=== PATIENT | male | born 1945 | race Caucasian/White ===

== ENCOUNTER 2018-09-14 07:54 | Inpatient (IN) ==
[2018-09-06 15:32] LABS: Appearance,Urine CLEAR; Bilirubin,Urine NEG (NEG); Color,Urine COLORLESS; Glucose,Urine (UA) NEGATIVE (NEG); Leukocyte Esterase,Urine NEG /uL (NEG); Protein,Urine NEG (NEG); Specific Gravity,Urine 1.003 (1.000-1.035); Urine Blood NEG mg/dL (<0.03); Urobilinogen,Urine NEG (NEG)
[2018-09-06 17:18] LABS: Basophils # (Auto) 0 K/mcL (0.0-0.3); Basophils % (Auto) 0.3 % (0.0-2.0); Eosinophils # (Auto) 0.2 K/mcL (0.0-0.7); Eosinophils % (Auto) 2.8 % (0.0-7.0); Granulocytes % (Auto) 68.4 % (38.0-78.0); Lymphocytes # (Auto) 1.7 K/mcL (1.5-4.8); Lymphocytes % (Auto) 19.8 % (15.5-49.0); Mean Cell Volume 95.9 fL (80.0-100.0); Mean Corpuscular HGB Conc 34.2 g/dL (31.0-36.0); Mean Corpuscular Hemoglobin 32.8 pg (26.0-34.0); Monocytes # (Auto) 0.7 K/mcL (0.1-0.9); Monocytes % (Auto) 8.7 % (1.0-12.0); Platelet Count 220 K/mcL (140-440); RBC 4.14 M/mcL (4.50-5.90); Red Cell Distribution Width 13.8 % (11.5-14.5)
[2018-09-06 17:44] LABS: Blood Urea Nitrogen 15 mg/dl (8-23)
[~2018-09-14 07:54] MED LIST: 0.9 % SODIUM CHLORIDE 9 ML, KETOROLAC 30 MG, ROPIVACAINE HCL/PF 49.5 ML, EPINEPHrine 0.... IJ SCH; PREGABALIN 75 MG CAPSULE PO SCH; ceFAZolin 1 GM VIAL IV SCH; oxyCODONE 10 MG TAB.ER.12H PO SCH
[2018-09-14] MEDS ORDERED: fentaNYL 100 MCG/2 ML VIAL IV ONE (10:55)
[2018-09-14] MEDS ORDERED: KETAMINE 100 MG/ML ML IV ONE (10:55)
[2018-09-14] MEDS ORDERED: ROPIVACAINE HCL/PF 20 ML VIAL IJ ONE (10:55)
[2018-09-14] MEDS ORDERED: ONDANSETRON 4 MG/2 ML VIAL IV ONE (10:55)
[2018-09-14] MEDS ORDERED: TRANEXAMIC ACID 1,000 MG/10 ML VIAL IV ONE (10:55)
[2018-09-14] MEDS ORDERED: MIDAZOLAM 2 MG/2 ML VIAL IV ONE (10:55)
[2018-09-14] MEDS ORDERED: DEXAMETHASONE 10 MG/ML VIAL IV ONE (10:55)
[2018-09-14] MEDS ORDERED: GLYCOPYRROLATE 0.2 MG/ML VIAL IV ONE (10:55)
[2018-09-14] MEDS ORDERED: PROPOFOL 200 MG/20 ML VIAL IV ONE (10:55)
[2018-09-14] MEDS ORDERED: PHENYLEPHRINE 10 MG/ML VIAL IV ONE (10:55)
[2018-09-14] MEDS ORDERED: LIDOCAINE HCL/PF 100 MG/5 ML SYRINGE IV ONE (10:55)
[2018-09-14] MEDS ORDERED: BENZOCAINE/MENTHOL 1 LOZENGE PO PRN ×2 (12:35→12:37)
[2018-09-14] MEDS ORDERED: ONDANSETRON 4 MG/2 ML VIAL IV PRN ×2 (12:35→12:37)
[2018-09-14] MEDS ORDERED: ACETAMINOPHEN 1,000 MG/100 ML BOTTLE IV ONE (12:35)
[2018-09-14] MEDS ORDERED: IPRATROPIUM/ALBUTEROL 3 ML AMPUL.NEB NEB PRN (12:35)
[2018-09-14] MEDS ORDERED: METHOCARBAMOL 1,000 MG/10 ML VIAL IV PRN (12:35)
[2018-09-14] MEDS ORDERED: LACTATED RINGERS 250 ML IV PRN (12:35)
[2018-09-14] MEDS ORDERED: fentaNYL 100 MCG/2 ML VIAL IV PRN (12:35)
[2018-09-14] MEDS ORDERED: NALOXONE HCL 0.4 MG/ML VIAL IV PRN (12:35)
[2018-09-14] MEDS ORDERED: MEPERIDINE 25 MG/ML SYRINGE IV PRN (12:35)
[2018-09-14] MEDS ORDERED: FLUMAZENIL 0.1 MG/ML ML IV PRN (12:35)
[2018-09-14] MEDS ORDERED: FLEETS ADULT ENEMA PR PRN (12:37)
[2018-09-14] MEDS ORDERED: MAGNESIUM HYDROXIDE 30 ML ORAL.SUSP PO PRN (12:37)
[2018-09-14] MEDS ORDERED: POLYETHYLENE GLYCOL 3350 17 GM PACKET PO PRN (12:37)
[2018-09-14] MEDS ORDERED: TRANEXAMIC ACID 1,000 MG/10 ML VIAL IV SCH (12:37)
[2018-09-14] MEDS ORDERED: BISACODYL 10 MG SUPP.RECT PR PRN (12:37)
--- NOTE | 2018-09-14 12:37 | Brief Operative Note ---
Date of procedure: 09/14/18 Pre-op diagnosis: Right knee DJD Post-op diagnosis: same Procedure: Right robotic assisted total knee arthroplasty Grafts/Implants: Yes ([place] Triathlon CR 6 femur, 6 tibia, 11mm insert, 39 patella) Anesthesia: spinal, GLMA Findings: arthritis Complications: none Surgeon: Jeramy Sidhu City Attorney: Mitchell Rock Estimated blood loss (cc): 30 Specimens Removed/Pathology: none sent Condition: stable Disposition: PACU
[2018-09-14] MEDS ORDERED: LACTATED RINGERS 1,000 ML IV SCH (12:45)
--- NOTE | 2018-09-14 14:50 | XRay Report ---
HISTORY: Postop knee replacement FINDINGS: There is a well positioned total knee prosthesis. No fracture is present. Above the prosthetic articular surface of the patella there is a cluster of small soft tissue calcifications. There is also a residual spur along the inferior articular margin the patella. IMPRESSION: Well-positioned right knee prosthesis Interpreted and Authenticated by: Nate Arzate 09/14/18
[2018-09-14] MEDS ORDERED: rOPINIRole 1 MG TABLET PO PRN (15:00)
[2018-09-14] MEDS: HYDROcodone/APAP 10/325MG TABLET PO PRN ×3 (15:18→23:06)
[2018-09-14] MEDS: 0.9 % SODIUM CHLORIDE 10 ML SYRINGE IV SCH ×2 (15:19→21:43)
[2018-09-14] MEDS: 0.9 % SODIUM CHLORIDE 1,000 ML IV SCH (15:19)
[2018-09-14] MEDS: KETOROLAC 15 MG/ML VIAL IV SCH ×2 (17:35→23:37)
[2018-09-14] MEDS: ceFAZolin 1 GM VIAL IV SCH (19:09)
[2018-09-14] MEDS: ASPIRIN 325 MG ENTERIC COATED TABLET PO SCH (20:16)
[2018-09-14] MEDS: DOCUSATE SODIUM 100 MG CAPSULE PO SCH (20:16)
[2018-09-14] MEDS ORDERED: amLODIPine 10 MG TABLET PO SCH (21:00)
[2018-09-14] MEDS ORDERED: ATORVASTATIN 20 MG TABLET PO SCH (21:00)
[2018-09-14] MEDS ORDERED: rOPINIRole 1 MG TABLET PO SCH (21:00)
[2018-09-14] MEDS ORDERED: TAMSULOSIN 0.4 MG CAPSULE PO SCH (21:00)
[2018-09-14] MEDS ORDERED: SENNOSIDES 1 TABLET PO SCH (21:00)
[2018-09-15] MEDS: 0.9 % SODIUM CHLORIDE 1,000 ML IV SCH ×2 (01:01→07:10)
[2018-09-15] MEDS: ceFAZolin 1 GM VIAL IV SCH (02:46)
[2018-09-15] MEDS: KETOROLAC 15 MG/ML VIAL IV SCH ×2 (05:56→11:27)
[2018-09-15] MEDS: 0.9 % SODIUM CHLORIDE 10 ML SYRINGE IV SCH (05:57)
[2018-09-15] MEDS: HYDROcodone/APAP 10/325MG TABLET PO PRN ×2 (07:19→11:27)
[2018-09-15] MEDS ORDERED: PANTOPRAZOLE 40 MG TABLET PO SCH (07:30)
[2018-09-15] MEDS ORDERED: LEVOTHYROXINE 100 MCG TABLET PO SCH (07:30)
--- NOTE | 2018-09-15 07:35 | Discharge Summary ---
Providers - Providers Patient information: Note initiated : 09/15/18 at 7:33 am Service Date, if different from initiated Date: [] Patient: Mansoor Dinh 72 y/o M admitted on 09/14/18 for Right Total Knee Arthroplasty Jamal. Chief Complaint: [] Discharge date: 09/15/18 Hospitalization Hospital course: Pt was admitted for a TKA. Pt underwent the procedure on the day of admission and spent 1 night on the floor for IV pain meds, IV abx, and PT prior to home discharge. Pt will take ASA for DVT prophylaxis, attend out-pt PT and f/u at [facility] in 2 weeks. Discharge diagnosis: R knee OA Exam - Exam Clean and dry: No (mild bloody drainage) Weight bearing status: as tolerated Ortho Discharge - TKA - Patient Instructions Diet: Regular Diet Activity: activity as tolerated Total Knee Protocol: For Total Knee: Start ROM ZAFAR with stationary bike or rocking chair. Work on gaining full extension of knee. Posterior dislocation precautions provided. Hip abductor strengthening and gait training instructions provided. Apply Cryocuff as instructed. Dressing Care: May shower in 2 days - Follow Up Plan Follow Up Appointments: Mitchell Rock PA-C [Physician Image Consultant] - 09/29/18 9:30 am Disposition: Home, Self-Care Prognosis: Good Rehab Potential: Good Overall status at discharge: patient is progressing back to baseline - Orders For Discharge Prescriptions: Aspirin [Ecotrin] 325 mg PO BID #30 tab.ec Pending Studies Resuscitation Status Full Code Diet Regular Diet Start WedSep 14 1238 Hydrocodone Bitart/Acetaminophen (Isabella 10/325mg) 0 tab PO Q4HP PRN PRN Reason: PAIN LEVEL 3-6 Last Admin: 09/15/18 07:19 Dose: 2 tab Admin: 09/14/18 23:06 Dose: 2 tab Admin: 09/14/18 17:34 Dose: 1 tab Admin: 09/14/18 15:18 Dose: 1 tab Amlodipine Besylate (Norvasc) 10 mg PO HS REBEKAH Last Admin: 09/14/18 20:16 Dose: 10 mg Aspirin (Ecotrin) 325 mg PO BID REBEKAH Last Admin: 09/14/18 20:16 Dose: 325 mg Atorvastatin Calcium (Lipitor) 40 mg PO HS REBEKAH Last Admin: 09/14/18 20:16 Dose: 40 mg Docusate Sodium (Colace) 100 mg PO BID [facility] Last Admin: 09/14/18 20:16 Dose: 100 mg Sodium Chloride (Sodium Chloride 0.9%) 1,000 mls @ 100 mls/hr IV .Q10H [facility] Last Admin: 09/15/18 07:10 Dose: Admin: 09/15/18 01:01 Dose: Not Given Admin: 09/14/18 15:19 Dose: Not Given Ketorolac Tromethamine (Toradol) 15 mg IV Q6 [facility] Stop: 09/16/18 12:01 Last Admin: 09/15/18 05:56 Dose: 15 mg Admin: 09/14/18 23:37 Dose: 15 mg Admin: 09/14/18 17:35 Dose: 15 mg [facility]othy[facility] Admin: 09/15/18 07:09 Dose: 100 mcg Morphine Sulfate (Morphine) 0 mg IV Q1HP PRN PRN Reason: PAIN LEVEL > 6 Last Admin: 09/14/18 19:09 Dose: 4 mg Admin: 09/14/18 16:04 Dose: 2 mg Pantoprazole [facility]ix) [facility] Last Admin: 09/15/18 07:09 Dose: 40 mg Ropinirole HCl (Requip) 2 mg PO [facility] Last Admin: 09/14/18 20:15 Dose: 2 mg Ropinirole HCl (Requip) 2 mg PO DAILYP PRN PRN Reason: RESTLESS LEG SYNDROME Last Admin: 09/14/18 16:07 Dose: 2 mg Senna (Senokot) 2 tab PO [facility] Last Admin: 09/14/18 20:15 Dose: 2 tab Sodium Chloride (Saline Flush) 10 ml IV Q8 [facility] Last Admin: 09/15/18 05:57 Dose: 10 ml Admin: 09/14/18 21:43 Dose: Not Given Admin: 09/14/18 15:19 Dose: Not Given Tamsulosin HCl (Flomax) 0.8 mg PO [facility] Last Admin: 09/14/18 20:16 Dose: 0.8 mg Shift Summary 09/15/18 05:28 Shift Summary by Jyoti Vargas Patient slept well this shift. Medicated for pain with Hydrocodone 2 tabs x1 and Morphine 4mg x1 with good effect. Up in hallway 650 ft with SBA using FWW and gait belt. Right knee dressing with some drainage from previous, reinforce another ABD pad and celina wrap. Applied ice pack. Voids adequately to the bathroom. IV on LFA saline locked. VSS. Initialized on 09/15/18 05:28 - END OF NOTE
[2018-09-15] MEDS: DOCUSATE SODIUM 100 MG CAPSULE PO SCH (08:57)
[2018-09-15] MEDS: ASPIRIN 325 MG ENTERIC COATED TABLET PO SCH (08:57)
[2018-09-15] MEDS ORDERED: POTASSIUM GLUCONATE 99 MG PO SCH (09:00)
[2018-09-15] MEDS ORDERED: GLUCOSAMINE/CHONDROITIN SULF A 1 CAP CAPSULE PO SCH (09:00)
[2018-09-15] MEDS ORDERED: LOSARTAN 50 MG TABLET PO SCH (09:00)
[2018-09-15] MEDS ORDERED: LORATADINE 10 MG TABLET PO SCH (09:00)
[2018-09-15] MEDS ORDERED: DUTASTERIDE 0.5 MG CAPSULE PO SCH (09:00)
[2018-09-15] MEDS ORDERED: MULTIVIT,THER IRON,CA,FA & MIN 1 TABLET PO SCH (09:00)
--- NOTE | 2018-09-16 09:59 | Operative Note ---
DATE OF OPERATION: 09/14/2018 PREOPERATIVE DIAGNOSIS: Right knee severe osteoarthritis. POSTOPERATIVE DIAGNOSIS: Right knee severe osteoarthritis. PROCEDURE PERFORMED: Right robotic-assisted total knee arthroplasty placing a [place] triathlon size 6 cruciate retaining femoral component, size 6 tibial baseplate, 11 mm X3 tibial insert with a 39 patella. SURGEON: Jeramy Sidhu MD BIOMEDICAL ANALYTICAL SCIENTIST: [place] Rock PA-C. ANESTHESIA: Spinal plus general. DRAINS: None. SPECIMENS: Bone cuts, which were discarded. BLOOD LOSS: 30 mL POSTOPERATIVE CONDITION: Stable. INDICATIONS FOR SURGERY: This is a 72-year-old male with longstanding worsening right knee pain. X-rays showed severe [id number] osteoarthritis with translation of the tibia laterally. FINDINGS AT SURGERY: He did have severe multi-compartment arthritis with hyperextension preoperatively. Postoperatively showed good joint stability with minimal hyperextension. PROCEDURE IN DETAIL: The patient had been seen preoperatively. Informed consent had been obtained after discussion of risks and benefits of surgery. Risks including, but not limited to, bleeding, possibly requiring transfusion; infection, possibly requiring implant removal, prolonged IV antibiotics; injury to nerves, blood vessels, and other surrounding structures; anesthetic risks; incomplete or no resolution of symptoms; stiffness; pain, swelling; DVT and pulmonary embolus risks; and the possibility of needing further revision surgery. He understood these risks and wished to proceed. Correct operative site was marked and then patient received spinal anesthesia. He was then taken to the operating room and LMA general given. Right lower extremity was carefully prepped and draped in normal sterile fashion and a timeout was performed verifying patient name, operative site, and plan. Esmarch was used to exsanguinate the extremity and tourniquet was inflated. Midline incision was made with a scalpel through skin and subcutaneous tissue. Hemostasis was obtained with Bovie cautery. IrriSept was irrigated and then a medial parapatellar arthrotomy made. Large joint effusion was aspirated. Subperiosteal exposure was done of the anterior medial tibia and the menisci were removed and he did not have an ACL. Retropatellar fat pad was removed as well. We then placed a femoral and tibial checkpoint. Hip center of rotation was checked and then a green probe used to identify the medial and lateral malleoli and double checked our femoral and tibial checkpoints. Blue probe was then used to do our mapping. Rongeur was then used to remove osteophytes. We then checked our flexion and extension gaps and then adjusted our implants to give us 17 mm gaps in flexion and extension. We then used the robotic assistance to do our bone cuts. The tibia was prepared and keel tibial trial placed. Femur was elevated and curved osteotome used to remove osteophytes. We then placed our femoral trial and then placed a 9 insert. He was tight laterally. We checked our extension and he was still hyperextending more than 5 degrees so we tried to place an 11 but we were unable to with the tight IT band laterally, so I went ahead and pie-crusted the IT band with a 15 blade scalpel. This allowed me to get an 11 insert in and gave us about -1 degree of hyperextension. We then prepared the patella freehand technique and sized this and drilled our holes. A limited lateral facetectomy was performed. We checked our patella tracking, which was excellent, so we went ahead and removed trial implants. Definitive implants were opened. We irrigated the joint with IrriSept. Antibiotic cement was mixed. We then cleaned and dried the cancellous bone surfaces with the CO2 gun and then cemented the tibia followed by the femur. We placed an 11 insert in after injecting pain cocktail in the posterior capsule and irrigating IrriSept onto the tray. The knee was then taken into full extension and any remaining excess cement was removed. The patellar button was cemented as well. While cement was curing, we removed checkpoints, injected pain cocktail into the pericapsular and subcutaneous tissues. We then removed the pins for the tibial and femoral arrays. Once cement had fully hardened, we did a final irrigation and then the knee was placed in 45 degrees of flexion. Interrupted [id number] #2 FiberWires were used around the superior quadrant of the patella, interrupted #1 Vicryl [id number] around the inferior quadrant, running #1 Vicryl for patellar tendon and quad tendon. Final IrriSept irrigation done, after a minute final pulse lavage and then 2-0 Monocryl for subcutaneous and edwar for skin. Xeroform sterile dressing applied and tourniquet was released. The patient was awakened, extubated, and transferred to recovery in stable condition. DOMI:maria de jesus Job ID: [id number] Doc ID: [id number] Jeramy Sidhu MD
== END 2018-09-15 12:20 | disposition home or self-care (01) | DRG 470 ==
LOC: MEDSUR 07:54
PROVIDERS: ADMIT Orthopaedic Surgery; ATTEND Orthopaedic Surgery
CPT/HCPCS: 62322; 97161; A6248; C1713; C1776; J0131; J0690; J1100; J1885; J2001; J2250; J2270; J2370; J2405; J2795; J3010; J7040; J7120